=== PATIENT | female | born 1930 | race Caucasian/White ===

== ENCOUNTER → 2017-03-05 | Outpatient (CLI) | payer BC ==
[~2017-03-05] MED LIST: ACET-1138 PO; CLB200 PO; MCLIN; RXC5 PO; WARF2.5T8 PO; WARF5TAB7 PO; physical therapy
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
== END | disposition home or self-care (01) ==
LOC: C.RAD1850 10:33
PROVIDERS: ATTEND Nurse Practitioner Family
DX: V89.2XXA Person injured in unspecified motor-vehicle accident, traffic, initial encounter (principal); R07.81 Pleurodynia; M79.652 Pain in left thigh; Z79.01 Long term (current) use of anticoagulants